=== PATIENT | female | born 1970 | race Caucasian/White ===

== ENCOUNTER → 2019-09-29 | Outpatient (CLI) | payer OTHER ==
[~2019-09-29] MED LIST: SERT100T32 PO
== END | disposition home or self-care (01) ==
LOC: STAR 08:27
PROVIDERS: ATTEND Anesthesiology
DX: Z01.818 Encounter for other preprocedural examination (principal); Z11.59 Encounter for screening for other viral diseases
CPT/HCPCS: 36415; 87635

== ENCOUNTER 2019-10-02 12:21 | Day surgery (SDC) | payer OTHER ==
[~2019-10-02] VITALS: Ht 165.1 cm; Wt 108.0 kg
[2019-10-02] MEDS ORDERED: LIDOCAINE 1%, 20ML ONE (13:00)
[2019-10-02] MEDS ORDERED: SODIUM BICARBONATE 4.2%, 5ML ONE (13:00)
[2019-10-02] MEDS ORDERED: LIDOCAINE 1%-EPI 1:100K, 20ML ONE (13:00)
[2019-10-02] MEDS ORDERED: LACTATED RINGERS 1,000 ML IV SCH (13:40)
[2019-10-02] MEDS ORDERED: CHLORHEXIDINE 15 ML UDC MM ONE (14:00)
[2019-10-02] MEDS ORDERED: CHLORHEXIDINE 15 ML UDC ONE (14:01)
[2019-10-02] MEDS ORDERED: LIDOCAINE-MPF 1%, 2ML ONE (14:01)
[2019-10-02 14:08] LABS: HCG UR SG 1.025 (1.003-1.030)
[2019-10-02] MEDS ORDERED: BUPIVACAINE/PF-EPI 0.5% 1:200K ONE (15:36)
[2019-10-02] MEDS ORDERED: SUCCINYLCHOLINE 20 MG/ML, 10ML ONE (15:59)
[2019-10-02] MEDS ORDERED: MIDAZOLAM 1 MG/ML, 2ML ONE (15:59)
[2019-10-02] MEDS ORDERED: DEXAMETHASONE 4 MG/ML, 1ML ONE (15:59)
[2019-10-02] MEDS ORDERED: CEFAZOLIN 1,000 MG ONE (15:59)
[2019-10-02] MEDS ORDERED: PROPOFOL 10 MG/ML, 20ML ONE (15:59)
[2019-10-02] MEDS ORDERED: ROCURONIUM 10 MG/ML,10ML ONE (15:59)
[2019-10-02] MEDS ORDERED: ONDANSETRON 2MG/ML, 2ML ONE (15:59)
[2019-10-02] MEDS ORDERED: FENTANYL PF 100 MCG/2ML ONE (16:07)
[2019-10-02] MEDS ORDERED: KETOROLAC 30 MG/1 ML IV PRN (17:00)
[2019-10-02] MEDS ORDERED: MEPERIDINE/PF 25MG/0.5ML IVPush PRN (17:00)
[2019-10-02] MEDS ORDERED: FENTANYL PF 100 MCG/2ML IV PRN (17:00)
[2019-10-02] MEDS ORDERED: METOCLOPRAMIDE 5 MG/ML, 2ML IV PRN (17:00)
[2019-10-02] MEDS ORDERED: ALBUTEROL SULFATE 2.5 MG/3 ML NPPB PRN (17:00)
[2019-10-02] MEDS ORDERED: OXYcodone 5 MG/5 ML ORAL.SOL UDC PO PRN (17:00)
[2019-10-02] MEDS ORDERED: LABETALOL 5MG/ML, 20ML IV PRN (17:00)
[2019-10-02] MEDS ORDERED: DIAZEPAM 5 MG/ML, 2ML IV PRN ×2 (17:00)
[2019-10-02] MEDS ORDERED: PROMETHAZINE 25 MG/ML, 1ML IV PRN (17:00)
[2019-10-02] MEDS ORDERED: HYDROmorphone 1 MG/ML, 1ML INJ IV PRN (17:00)
[2019-10-02] MEDS ORDERED: ONDANSETRON 2MG/ML, 2ML IVPush PRN (17:00)
[2019-10-02] MEDS ORDERED: hydrALAzine 20 MG/ML, 1ML IV PRN (17:00)
== END 2019-10-02 18:15 | disposition home or self-care (01) ==
LOC: CFH 12:21 → EDSTATUS 16:00 → OUT 18:15
PROVIDERS: ATTEND Surgery
DX: D48.62 Neoplasm of uncertain behavior of left breast (principal); R92.1 Mammographic calcification found on diagnostic imaging of breast; E66.9 Obesity, unspecified; Z68.39 Body mass index [BMI] 39.0-39.9, adult; Z79.899 Other long term (current) drug therapy; Z80.8 Family history of malignant neoplasm of other organs or systems
CPT/HCPCS: 19125; 19281; 76098; 81025; 88305; J0330; J0690; J1100; J2250; J2405; J2704; J3010; J3490; J7120